=== PATIENT | male | born 1995 | race Caucasian/White ===

== ENCOUNTER 2022-03-16 15:38 | Emergency (ER) | payer OTHER ==
[~2022-03-16] VITALS: Ht 167.6 cm; Wt 57.6 kg
[2022-03-16] MEDS ORDERED: VALACYCLOVIR1000 MG PO ×2 (17:17→17:19)
== END 2022-03-16 17:26 | disposition home or self-care (01) ==
LOC: ER 15:38
DX: R21 Rash and other nonspecific skin eruption (principal)